=== PATIENT | female | born 1985 | race Caucasian/White ===

== ENCOUNTER 2023-01-18 10:03 | Emergency (ER) | payer OTHER ==
[2023-01-18 10:13] VITALS: BP 107/69; PULSE 86; RESP 18; TEMP 98.7; BMI 25.0
== END 2023-01-18 10:42 | disposition left against medical advice (07) ==
LOC: JERFT 10:03 → JER 10:03 → JERFT 10:42
DX: Z11.3 Encounter for screening for infections with a predominantly sexual mode of transmission (principal)
CPT/HCPCS: 99281-25